=== PATIENT | female | born 1980 | race Caucasian/White ===

== ENCOUNTER → 2018-07-12 15:40 | Outpatient (CLI) | payer OTHER, SELFPAY ==
[2018-07-12 14:31] VITALS: BMI 37.9
[2018-07-18 16:07] LABS: HPV APTIMA, High Risk Negative (Negative)
== END ==
PROVIDERS: Referring Provider Nurse Practitioner Women's Health; Visit Provider Nurse Practitioner Women's Health
DX: Z12.4 Encounter for screening for malignant neoplasm of cervix (principal)
CPT/HCPCS: 87624; 88175; G0145

== ENCOUNTER → 2021-05-12 12:53 | Outpatient (CLI) | payer OTHER, BC, SELFPAY ==
--- NOTE | 2021-05-12 13:00 | BI_ITS ---
MAMMOGRAPHY - BILATERAL SCREENING REASON FOR EXAM: Female, 40 years old. Routine annual screening examination. PERTINENT HISTORY: Non-contributory. TECHNIQUE: Digital bilateral breast syed (3D mammographic acquisition) in the CC and MLO projections. 2-D mediolateral oblique (MLO) and craniocaudad (CC) views of both breasts were obtained. CAD: Full Field Digital Mammography with Computer Added Detection was performed. COMPARISON: None. Baseline examination. FINDINGS: Breast Composition: The breasts are heterogeneously dense, which may obscure small masses. There are no dominant masses or suspicious calcifications. Small benign-appearing bilateral axillary lymph nodes. No other significant abnormalities are identified. BI/SCRN MAMM (CAD)W/SYED BILAT IMPRESSION: Negative screening mammogram. Yearly followup mammogram recommended. (A) ASSESSMENT CATEGORY: BIRADS Category 2: Benign. A letter regarding these results will be sent to the patient by the facility within 30 days. Approximately 10% of breast cancers are not detected by mammography. A normal mammogram should not delay biopsy of a clinically suspicious abnormality. [id number] Electronically Signed: Melvin Guerrero MD at 14:13 EDT , Service support ,
== END ==
PROVIDERS: PCP Family Medicine; Referring Provider Family Medicine; Visit Provider Family Medicine
DX: Z12.31 Encounter for screening mammogram for malignant neoplasm of breast (principal)
CPT/HCPCS: 77063; 77067

== ENCOUNTER → 2023-08-10 | Outpatient (CLI) | payer OTHER, SELFPAY ==
[2023-08-18 16:08] LABS: HPV APTIMA, High Risk Positive (Negative)
== END | disposition home or self-care (01) ==
PROVIDERS: PCP Family Medicine; Visit Provider Nurse Practitioner Women's Health
DX: Z12.4 Encounter for screening for malignant neoplasm of cervix (principal)
CPT/HCPCS: 87624; 88175; G0145

== ENCOUNTER → 2023-08-17 | Outpatient (CLI) | payer OTHER, SELFPAY ==
--- NOTE | 2023-08-17 15:34 | BI_ITS ---
MAMMOGRAPHY - BILATERAL SCREENING 3-D TOMOSYNTHESIS REASON FOR EXAM: Female, 42 years old. Routine annual screening mammogram. PERTINENT HISTORY: No significant family history. TECHNIQUE: 2-D mammograms and 3-D Tomosynthesis of the breast (s) were performed. CAD was performed. COMPARISON: May 12, 2021 FINDINGS: Heterogeneously dense fibroglandular tissue which may obscure small masses. Stable normal lymph nodes and scattered benign calcifications bilaterally. No dominant masses, suspicious microcalcifications, asymmetry, skin thickening or nipple retraction. BI/SCRN MAMM (CAD)W/SYED BILAT IMPRESSION: No mammographic signs of malignancy. Yearly follow-up bilateral screening mammogram recommended. ASSESSMENT CATEGORY: BIRADS Category 2: Benign. A letter regarding these results will be sent to the patient by the facility within 30 days. FOLLOW UP RECOMMENDATION: Yearly follow up mammogram recommended. (A) Approximately 10% of breast cancers are not detected by mammography. A normal mammogram should not delay biopsy of a clinically suspicious abnormality. Electronically Signed: Dmitriy Cabrera MD at 10:42 EST ,
== END | disposition home or self-care (01) ==
LOC: OPBI 15:33
PROVIDERS: PCP Family Medicine; Referring Provider Nurse Practitioner Women's Health; Visit Provider Nurse Practitioner Women's Health
DX: Z12.31 Encounter for screening mammogram for malignant neoplasm of breast (principal)
CPT/HCPCS: 77063; 77067

== ENCOUNTER 2024-03-15 15:20 | Outpatient (RCR) | payer OTHER, SELFPAY | END 2024-03-22 23:59 | LOC: NS 15:20 | PROVIDERS: PCP Family Medicine; Referring Provider Family Medicine; Visit Provider Family Medicine | DX: Z71.3 Dietary counseling and surveillance (principal); E66.9 Obesity, unspecified; Z68.37 Body mass index [BMI] 37.0-37.9, adult | CPT/HCPCS: 97802 ==

== ENCOUNTER 2024-04-11 11:21 | Outpatient (RCR) | payer OTHER, SELFPAY | END 2024-04-22 23:59 | LOC: NS 11:21 | PROVIDERS: PCP Family Medicine; Referring Provider Family Medicine; Visit Provider Family Medicine | DX: Z71.3 Dietary counseling and surveillance (principal); E66.9 Obesity, unspecified; Z68.37 Body mass index [BMI] 37.0-37.9, adult | CPT/HCPCS: 97803 ==

== ENCOUNTER → 2025-01-23 | Outpatient (CLI) | payer OTHER, SELFPAY ==
[2025-01-23 16:08] LABS: Hematocrit 38.3 % (37-47); Mean Corp Hgb Conc 33.9 g/dL (32-36); Mean Corpuscular Hgb 29.3 pg (27.0-32.0); Mean Corpuscular Volume 86.5 fL (81-99); Mean Platelet Vol. 9.3 fl (6.2-12.0); Platelet Count 313 K/mm3 (150-450); RBC Distribution Width CV 13.2 % (11.6-14.6); RBC Distribution Width SD 41.1 fl (35.1-43.9); Red Blood Count 4.43 M/mm3 (4.2-5.4); White Blood Count 8.4 K/mm3 (4.4-11.0)
== END | disposition home or self-care (01) ==
LOC: LAB 15:32
PROVIDERS: PCP Family Medicine; Referring Provider Family Medicine; Visit Provider Family Medicine
DX: Z00.00 Encounter for general adult medical examination without abnormal findings (principal); I47.10 Supraventricular tachycardia, unspecified; R53.83 Other fatigue
CPT/HCPCS: 36415; 84443; 85027

== ENCOUNTER → 2025-03-28 | Outpatient (CLI) | payer OTHER, SELFPAY ==
--- OUTSIDE RECORDS SUMMARY | 2025-03-28 08:56 | XMS RPT_ITS | CCD ---
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 Fidelina Arshad Primary Care Provider [phone] Dr. Fidelina Arshad Referring Provider [phone] Charu AUCTIONEER TOBACCO, ELIZABETH Medina Attending Provider [phone] Dr. Fidelina Arshad MD Primary Care Provider Dr. Fidelina Arshad MD Attending Provider Dr. Fidelina Arshad MD Referring Provider Dr. Cody Dutton MD Attending Provider Fidelina Arshad Primary Care Unavailable Fidelina Arshad Referring Unavailable Fidelina Arshad Attending Unavailable Easton Donovan Attending Unavailable Fidelina Arshad Primary Care Unavailable Jeancarlos, Fidelina Primary Care Unavailable Cody Dutton Referring Unavailable Cody Dutton Attending Unavailable Fidelina Arshad Primary Care Unavailable Cody Dutton Referring Unavailable Cody Dutton Attending Unavailable Fidelina Arshad Attending Unavailable Fidelina Arshad Primary Care Unavailable Fidelina Arshad Referring Unavailable Fidelina Arshad Attending Unavailable Tobi Arshadnah Primary Care Unavailable Tobi Arshadnah Referring Unavailable Jeancarlos, Fidelina Primary Care Unavailable Fidelina Arshad Referring Unavailable Cody Dutton Attending Unavailable Medications Current Medications Medication Drug Class(es) Dates Sig (Normalized) Sig (Original) 24 hr amphetamine aspartate 7.5 mg / amphetamine sulfate 7.5 mg / dextroamphetamine saccharate 7.5 mg / dextroamphetamine sulfate 7.5 mg extended release oral capsule (1 source) Central Nervous System Stimulant Start: 03-13-2025 Dextroamphetamine-A mphetamine 30 mg capsule,extended release 24hr Active 1 NMA PO daily 0 March 13, 2025 12:00am Dextroamphetamine-Amph etamine 10 mg capsule,extended release 24hr (1 source) Start: 03-13-2025 Dextroamphetamine-A mphetamine 10 mg capsule,extended release 24hr Active 1 NMA PO EVERY MORNING 0 March 13, 2025 12:00am levonorgestrel 0.094668 mg/hr intrauterine system (4 sources) Progestin, Progestin-contain ing Intrauterine Device Start: 09-21-2018 Levonorgestrel (Liletta) 19.5 mcg/24 hour (4 years) intrauterine device Active 1 NMA INTRA-UTER ONCE September 21, 2018 1:00am Start: 09-21-2018 Levonorgestrel (Liletta) 19.5 mcg/24 hour (4 years) intrauterine device Active 1 INSERT INTRA-UTER ONCE September 21, 2018 12:00am Problems Problem Classification Problem Date Documented Date Episodic/Chronic Attention-deficit, conduct, and disruptive behavior disorders (1 source) Adult attention deficit hyperactivity disorder ; Translations: [Attention-deficit hyperactivity disorder, other type] 03-06-2025 Chronic Cancer of cervix (3 sources) Atypical squamous cells of undetermined significance on cervical Papanicolaou smear; Translations: [Atypical squamous cells of undetermined significance on cytologic smear of cervix (ASC-US)] 08-20-2023 Episodic Cardiac dysrhythmias (2 sources) Palpitations; Translations: [Palpitations] Onset: 03-13-2025 Episodic Other diseases of bladder and urethra (4 sources) Bladder irritability; Translations: [Other specified disorders of bladder] 08-10-2023 Chronic Other diseases of bladder and urethra (2 sources) Other specified disorders of bladder; Translations: [Other specified disorders of bladder] 08-10-2023 Chronic Other lower respiratory disease (2 sources) Other forms of dyspnea; Translations: [Other forms of dyspnea] Onset: 03-13-2025 Episodic Other nutritional; endocrine; and metabolic disorders (2 sources) Obesity, unspecified; Translations: [Obesity, unspecified] Onset: 04-28-2024 Chronic Spondylosis; intervertebral disc disorders; other back problems (1 source) Backache; Translations: [Dorsalgia, unspecified] 03-06-2025 Episodic Unclassified (1 source) Supraventricular tachycardia, unspecified; Translations: [Supraventricular tachycardia, unspecified] Onset: 03-13-2025 Results Test Name Value Interpretation Reference Range Facility Cardiology Visit Reporton Cardiology Visit Report [facility] [address] [place] [address] OFFICE VISIT Date of Service: 03/13/25 MR#: [id number] Acct: [id number] Name: DEYA GARCIA Rep #: [id number] : 1980 Provider: Dr. Cody ferguson MD Age/Sex: 44/F Location: [facility] Status: Signed HPI HPI History of Present Illness Details: Patient is a pleasant 44-year-old white female comes in today for new patient visit. The patient works at [employer] and has somewhat of a stressful job. She reports that she has episodes where she gets dyspnea on exertion out of proportion of others of the same age and physical abilities around her. She is also noticed that her heart rate is tachycardic can be up in the 130s when she does sit in a ballgame. The patient does notice that this has happened with the heart rate more prominently since she started Adderall about a year ago. Before that time she was hiking in [place] and did not notice these significant dyspnea on exertion or the tachycardia. Now she gets short of breath quickly and more quickly than her who smokes significantly. The patient quit smoking 8 years ago she had about an [id number] smoking history. The patient denies any syncope or near syncope. She did play sports in high school and during game times was able to keep up with everyone but during practice when with running drill she lag behind due to breathing issues. And this preceded any smoking exposure. The patient does not have a family history of early coronary disease she has not been diagnosed with hypertension although her blood pressure in office today was 132/93 but she admits to being anxious. Her heart rates 101. She does have a history of minimal elevation of her LDL cholesterol she is not diabetic and she quit smoking 8 years ago. ECG done in office today shows normal sinus rhythm at 92 bpm and is within normal limits. The patient is never had a stress test and does not have an echocardiogram. She has been treated for this ADHD adult residual type with Adderall for the last year. 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 Required: No Accompanied by: Self Is patient in pain?: No Allergies No Known Allergies Allergy (Verified 03/13/25 14:18) Medications ???Medication ???Instructions ???Recorded ???Confirmed ???Type levonorgestrel 20.4 mcg/24 hr (up 1 insert intrauterine ONCE 03/13/25 History to 8 yrs) 52 mg intrauterine device (Liletta) dextroamphetamine-am phetamine ER 1 cap PO QAM 03/13/25 03/13/25 His tory 10 mg 24hr capsule,extend release dextroamphetamine-am phetamine ER 1 cap PO QDAY 03/13/25 03/13/25 Hi story 30 mg 24hr capsule,extend release Have you fallen in the past year?: No PFSH Medical History Back pain ADHD, adult residual type Surgical History History of dilatation and curettage History of cholecystectomy Family History Father Hypertension Diverticulitis Hyperlipidemia Sister Diabetes Grandfather Diabetes Social History current occupational status: employed 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 Smoking Status: Former smoker alcohol intake: current alcohol intake frequency: holidays/special occasions only substance use type: does not use caffeine: Yes seatbelt use: always do you feel safe at home: Yes 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 SKY Const Const: Negative for fatigue or weakness ENT ENT: Negative for dizziness or balance problems Cardio Chest Pain: No Palpitations: Yes (caused by vigorous activity) Edema: Bilateral (intermittently) Muscle aches with walking: None Resp Respiratory: Positive for SOB with activity (with vigorous activity); Negative for SOB at rest or SOB orthopnea SOB lying down GI GI: Positive for heartburn; Negative nausea or vomiting Musc Musc: Negative for muscle weakness or balance problems Neuro Neuro: Negative for dizziness, lightheadedness, near syncope, syncope or weakness Endo Endo: Negative for fatigue Cardiology Exam Const Appearance: cooperative, healthy appearing, comfortable, no acute distress and well developed Head Head: normal to inspection Eyes General: appearance normal, both eyes and all related struct (more content not included)... Normal [facility] CBC-Complete Blood Cnt No Di ffon 01-23-2025 Erythrocyte distribution width (RBC) [Ratio] 13.2 % Normal 11.6-14.6 [facility] Comment on above: Performed By: #### L [id number], L100.0500 #### [facility] [address] [place], [address] Hematocrit (Bld) [Volume fraction] 38.3 % Normal 37-47 [facility] Comment on above: Performed By: #### L [id number], L100.0500 #### [facility] [address] [place], [address] Hemoglobin (Bld) [Mass/Vol] 13.0 g/dL Normal 12.0-15.0 [facility] Comment on above: Performed By: #### L [id number], L100.0500 #### [facility] [address] [place], [address] MCH (RBC) [Entitic mass] 29.3 pg Normal 27.0-32.0 [facility] Comment on above: Performed By: #### L [id number], L100.0500 #### [facility] [address] [place], [address] MCHC (RBC) [Mass/Vol] 33.9 g/dL Normal 32-36 [facility] Comment on above: Performed By: #### L [id number], L100.0500 #### [facility] [address] [place], [address] MCV (RBC) [Entitic vol] 86.5 fL Normal 81-99 [facility] Comment on above: Performed By: #### L [id number], L100.0500 #### [facility] [address] [place], [address] Platelet mean volume (Bld) [Entitic vol] 9.3 fL Normal 6.2-12.0 [facility] Comment on above: Performed By: #### L [id number], L100.0500 #### [facility] [address] [place], [address] Platelets (Bld) [#/Vol] 313 10*3/uL Normal 150-450 [facility] Comment on above: Performed By: #### L [id number], L100.0500 #### [facility] [address] [place], [address] RBC (Bld) [#/Vol] 4.43 10*6/uL Normal 4.2-5.4 [facility] Comment on above: Performed By: #### L [id number], L100.0500 #### [facility] [address] [place], [address] RDW SD 41.1 fl Normal 35.1-43.9 [facility] Comment on above: Performed By: #### L [id number], L100.0500 #### [facility] [address] [place], [address] WBC (Bld) [#/Vol] 8.4 10*3/uL Normal 4.4-11.0 [facility] Comment on above: Performed By: #### L [id number], L100.0500 #### [facility] [address] [place], [address] Erythrocyte distribution wid th ratioOrdered By: Fidelina Arshad on 01-23-2025 Erythrocyte distribution width (RBC) [Ratio] 13.2 % 11.6-14.6 [facility] Erythrocyte distribution wid th standard deviationOrdered By: Fidelina Arshad on 01-23-2025 Erythrocyte distribution width (RBC) [Ratio] 41.1 fl 35.1-43.9 [facility] Hematocrit Auto (Bld) [Volum e fraction]Ordered By: Fidelina Arshad on 01-23-2025 Hematocrit (Bld) [Volume fraction] 38.3 % 37-47 [facility] Hemoglobin measurementOrdere d By: Fidelina Arshad on 01-23-2025 Hemoglobin (Bld) [Mass/Vol] 13.0 g/dL 12.0-15.0 [facility] MCV (mean corpuscular volume ) determinationOrdered By: Fidelina Arshad on 01-23-2025 MCV (RBC) [Entitic vol] 86.5 fL 81-99 [facility] Mean corpuscular hemoglobin (MCH) determinationOrdered By: Fidelina Arshad on 01-23-2025 MCH (RBC) [Entitic mass] 29.3 pg 27.0-32.0 [facility] Mean corpuscular hemoglobin concentration (MCHC) determinationOrdered By: Fidelina Arshad on 01-23-2025 MCHC (RBC) [Mass/Vol] 33.9 g/dL 32-36 [facility] Mean platelet volume determi nationOrdered By: Fidelina Arshad on 01-23-2025 Platelet mean volume (Bld) [Entitic vol] 9.3 fL 6.2-12.0 [facility] Platelet countOrdered By: Jaime Arshad on 01-23-2025 Platelets (Bld) [#/Vol] 313 10*3/uL 150-450 [facility] RBC Auto (Bld) [#/Vol]Ordere d By: Fidelina Arshad on 01-23-2025 RBC (Bld) [#/Vol] 4.43 10*6/uL 4.2-5.4 [facility] TSH DL <= 0.005 mIU/L QnOrde red By: Fidelina Arshad on 01-23-2025 TSH Qn 2.430 uIU/mL 0.300-4.200 [facility] Thyroid Stim Hormone (TSH)on 01-23-2025 TSH 2.430 uIU/mL Normal 0.300-4.200 [facility] Comment on above: Performed By: #### L [id number], L100.0500 #### [facility] [address] [place], [address] White blood cell (WBC) count Ordered By: Fidelina Arshad on 01-23-2025 WBC (Bld) [#/Vol] 8.4 10*3/uL 4.4-11.0 [facility] Cervical or vagninal specime n microscopic examination by cytology stain (reported asOrdered By: Carol Box on 08-10-2023 Cytology report Cyto stain Doc (Cvx/Vag) Comment . [facility] Comment on above: The Pap smear is a s creening test designed to aid in thedetection of premalignant and malignant conditions of theuterine cervix. It is not a diagnostic procedure andshould not be used as the sole means of detecting cervicalcancer. Both false-positive and false-negative reports dooccur. Detection in cervical specim en of any of human papilloma virus (HPV) 16, 18, 31, 33,Ordered By: Carol Box on 08-10-2023 HPV 16+18+31+33+35+39+45+51+ 52+56+58+59+66+68 DNA Probe+sig amp Ql (Cvx) Positive Negative [facility] Comment on above: This nucleic acid am plification test detects fourteen high-risk HPV types (16,18,31,33,35,39,45,51,52,56,58,59,66,68)without differentiation. Laboratory - CytologyOrdered By: Carol Box on 08-10-2023 Residential Framing Carpenter Cyto stain Nom (Cvx/Vag) [ID] Comment . [facility] Comment on above: Marvin Corral totechnologist Pathologist Cyto stain Nom (Cvx/Vag) [ID] Comment . [facility] Comment on above: Leonor Arteaga MD, Pa thologist Recommended follow-up Cyto stain Nom (Cvx/Vag) Comment . [facility] Comment on above: Suggest follow up as clinically appropriate. Laboratory - Miscellaneous t estsOrdered By: Carol Box on 08-10-2023 Service comment (Unsp spec) [Interp] Comment . [facility] Comment on above: This liquid based Th inPrep(R) pap test was screened withthe use of an image guided system. Service comment (Unsp spec) [Interp] . . [facility] Liquid-based cerv Pap + CT/G C by JOANA w reflex to high-risk HPV for ASCUSOrdered By: Carol Box on 08-10-2023 Cytology report Cyto stain.thin prep Doc (Cvx/Vag) Comment . [facility] Comment on above: Criteria not met, HP V Genotype not performed.Performed at: [facility] - [facility] [id number] Director: Oneida Elise MD, Phone: [phone] at: =G - [facility] [address] [id number] Director: Oneida Elise MD, Phone: [phone] No Panel InformationOrdered By: Carol Box on 08-10-2023 Pap Smear QC Review Comment . [facility] Comment on above: Marvin Moran totechnologist (ASCP) Pathology report final diagnosis Narrative Comment . [facility] Comment on above: EPITHELIAL CELL ABNO RMALITY.ATYPICAL SQUAMOUS CELLS OF UNDETERMINED SIGNIFICANCE (ASC-US). R87.610 Vital Signs Date Time Vital Sign Value Performing Clinician Faci lity 03-13-2025 14:18-0400 Body height 175.[address] Fidelina Arshad MD Work Phone: [facility] 03-13-2025 14:18-0400 Body mass index (BMI) [Ratio] 36.9 kg/m2 Dr. Fidelina Arshad MD Work Phone: [facility] 03-13-2025 14:18-040 Body weight 113.[address] Fidelina Arshad MD Work Phone: [facility] 03-13-2025 14:18-0400 Diastolic blood pressure 93 mm[Hg] Dr. Fidelina Arshad MD Work Phone: [facility] 03-13-2025 14:18-0400 Heart rate 101 /min Dr. Fidelina Arshad MD Work Phone: [facility] 03-13-2025 14:18-0400 Respiratory rate 18 /min Dr. Fidelina Arshad MD Work Phone: [facility] 03-13-2025 14:18-0400 SaO2% (BldA) [Mass fraction] 96 % Dr. Fidelina Arshad MD Work Phone: [facility] 03-13-2025 14:18-0400 Systolic blood pressure 132 mm[Hg] Dr. Fidelina Arshad MD Work Phone: [facility] 08-10-2023 15:47-0500 Body height 175.[address] Fidelina Arshad Work Phone: [facility] 08-10-2023 15:47-0500 Body mass index (BMI) [Ratio] 35.7 kg/m2 Dr. Fidelina Arshad Work Phone: [facility] 08-10-2023 15:47-0500 Body weight 109.[address] Fidelina Arshad Work Phone: [facility] 08-10-2023 15:47-0500 Diastolic blood pressure 82 mm[Hg] Dr. Fidelina Arshad Work Phone: [facility] 08-10-2023 15:47-0500 Systolic blood pressure 124 mm[Hg] Dr. Fidelina Arshad Work Phone: [facility] Encounters Encounter Date Encounter Type Care Provider Facility Start: 04-06-2025 ambulatory Easton Friend Facility :[facility] Start: 03-29-2025 ambulatory [facility] Facility: [facility] Start: 03-28-2025 ambulatory [facility] Facility: [facility] Start: 03-13-2025 End: 03-13-[address] Cody Dutton MD -[facility] Work Phone: Start: 03-13-2025 End: 03-13-[address] Fidelina Arshad MD Work Phone: -[facility] Start: 01-28-2025 Encounter for genera l adult medical examination without abnormal findings [facility] Start: 01-23-2025 End: 01-23-[address] Fidelina Arshad MD Work Phone: [facility] Work Phone: Start: 01-23-2025 End: 01-23-[address] Fidelina Arshad MD -Laboratory Work Phone: Start: 01-23-2025 End: 01-23-2025 ambulatory Fidelina Mihayes Facility:[facility] Start: 06-06-2024 ambulatory [facility] Facility: [facility] Start: 04-11-2024 End: 04-22-2024 ambulatory [facility] Facility:[facility] Start: 08-17-2023 End: 08-17-[address] Fidelina Arshad Work Phone: [facility] Work Phone: Start: 08-17-2023 End: 08-17-[address] Fidelina Arshad Work Phone: [facility]-Outpatient Breast Imaging Work Phone: Start: 08-10-2023 End: 08-10-[address] Fidelina Arshad Work Phone: [facility] Work Phone: Start: 08-10-2023 End: 08-10-[address] Fidelina Arshad Work Phone: [facility]-Laboratory, Specimen Work Phone: Start: 08-10-2023 End: 08-10-[address] Fidelina Arshad Work Phone: [facility] Work Phone: Procedures Date Procedure Procedure Detail Performing Clinician Start: 08-17-2023 Screening mammography José Arshad Work Phone: Plan of Treatment Date Care Activity Detail Author Start: 03-13-2025 Evaluation of diagno stic study results [facility] Start: 08-17-2023 MG Breast - bilatera l Screening [facility] Start: 08-17-2023 Screening mammography SCRN CORINNE M (CAD)W/SYED BILAT [facility] Start: 08-10-2023 Liquid based cervica l cytology screening [facility] 24 Hour ECG [facility] Cardiovascular stres s testing [facility] Path report.final Dx Spec [facility] acute hospital Payers Date Payer Category Payer Self-pay [id number] 2024 Unknown [id number] Unknown [id number] Unknown SELF INSURED [facility] OTHER [id number] Unknown [id number] Unknown [id number] Unknown [id number] Unknown [id number] Unknown [id number] Unknown [id number] Unknown [id number] Social History Date Type Detail Facility Start: 08-10-2023 Tobacco smoking stat [facility] Unknown if ever smoked [facility] Start: 1980 Sex Assigned At Female [facility] Start: 08-10-2023 Tobacco smoking stat [facility] Never smoked tobacco (finding) [facility] Start: 03-13-2025 Tobacco smoking stat [facility] Ex-smoker (finding) [facility] Clinical Note 08-10-2023 Note Date & Type Note Facility 08-10-[address] [facility] Pap Smear Specimen Adequacy August 10, 2023 5:11pm Comment . Satisfactory for evaluation. Endocervical and/or squamous metaplasticcells (endocervical component) are present. Comment on above: Satisfactory for gracia luation. Endocervical and/or squamous metaplasticcells (endocervical component) are present. Clinical Note 03-14-2021 Note Date & Type Note Facility 03-14-2021 Note Patient Outreach (IN [facility]) DEYA BIRCH ([id number]) 1980 F Date Time Provider Department 03/14/21 PATRICIA PARR During your visit today, we recorded the following information about you: Allergies As of Date: 03/14/2021 (No Known Allergies) Date Reviewed: 07/06/2019 Reviewed by: Joseph Cho - Fully Assessed Visit Diagnosis:Encounter for screening mammogram for breast cancer [Z12.31] Order(s):[facility] SCREENING [[id number]] Order #: [id number] FUTURE Prescriptions as of 03/17/2021 - predniSONE (DELTASONE) 10 mg tablet 4 tabs po Q am x 3 days; 3 tabs po Q am x 3 days; 2 tab po Q am x 3 days; 1 tab po Q am x 3 days - benzonatate (TESSALON PERLE) 100 mg capsule Take 2 capsules by mouth three times daily as needed. - albuterol HFA (PROAIR HFA) 90 mcg/actuation inhaler Inhale 2 Puffs as instructed every 4 hours as needed. - Varenicline (CHANTIX) 0.5 mg (11)- 1 mg (42) tablet Take 0.5 mg daily x3days, then twice daily for 4 days, then 1mg twice daily for duration. - varenicline (CHANTIX CONTINUING MONTH ) 1 mg tablet Take 1 tablet by mouth twice daily. Meds Comments as of 05/06/2010: Problem List As Of Date 03/14/2021 Noted Resolved SUPERVIS OTHER NORMAL PREG [Z34.80] 11/03/2007 06/06/2008 Tobacco abuse [Z72.0] 10/21/2010 Chronic cholecystitis with calculus [K80.10] 08/03/2016 Tobacco use [Z72.0] Encounter Status:Closed by MYNOR HUMMEL on 03/17/21 [facility] Evaluation note Note Date & Type Note Facility Evaluation note Diagnosis Onset Date Bladder irritation acute Encounter for routine gyneco logical examination noneactive [facility] Work Phone: Evaluation note Note Date & Type Note Facility Evaluation note No assessment information availa ble [facility] Work Phone: Reason for referral (narrative) Note Date & Type Note Facility Reason for referral (narrative) No reason for referral information available 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 Fidelina Arshad MD Primary Care Provider Active Team Status: Inactive Member Role Status Dates Dr. Fidelina Arshad MD Primary Care Provider, Referrin g Provider Active Carol Box AUCTIONEER TOBACCO, AUCTIONEER TOBACCO-C Attending Provider Active Team Status: Inactive Member Role Status Dates Dr. Fidelina Arshad MD Primary Care Provider Active Carol Box AUCTIONEER TOBACCO, AUCTIONEER TOBACCO-C Attending Provider Active Team Status: Active Member Role Status Dates Dr. Fidelina Arshad MD Primary Care Provider Active Carol Box AUCTIONEER TOBACCO, AUCTIONEER TOBACCO-C Attending Provider, Referring Provider Active Team Status: Inactive Member Role Status Dates Dr. Fidelina Arshad MD Primary Care Provider Active Carol Box AUCTIONEER TOBACCO, AUCTIONEER TOBACCO-C Attending Provider, Referring Provider Active Team Status: Inactive Member Role Status Dates Dr. Fidelina Arshad MD Primary Care Provider Active Start: January 23, 2025 End: January 23, 2025 Dr. Fidelina Arshad MD Attending Provider Active Start: January 23, 2025 End: January 23, 2025 Dr. Fidelina Arshad MD Referring Provider Active Start: January 23, 2025 End: January 23, 2025 Team Status: Active Member Role/Relationship Status Dates Dr. Fidelina Arshad MD Primary Care Provider Active Team Status: Inactive Member Role/Relationship Status Dates Dr. Fidelina Arshad MD Primary Care Provider Active Start: January 23, 2025 End: January 23, 2025 Dr. Fidelina Arshad MD Attending Provider Active Start: January 23, 2025 End: January 23, 2025 Dr. Fidelina Arshad MD Referring Provider Active Start: January 23, 2025 End: January 23, 2025 Team Status: Inactive Member Role/Relationship Status Dates Dr. Fidelina Arshad MD Primary Care Provider Active Start: March 13, 2025 End: March 13, 2025 Dr. Fidelina Arshad MD Referring Provider Active Start: March 13, 2025 End: March 13, 2025 Dr. Cody Dutton MD Attending Provider Active Start: March 13, 2025 End: March 13, 2025 Goals (unrecognized section and content) Goals may be documented in a n alternate sectionGoals may be documented in an alternate sectionGoals may be documented in an alternate sectionGoals may be documented in an alternate section FOR RECORDS PERTAINING TO PATIENTS WHO ARE OR HAVE BEEN ENROLLED IN A CHEMICAL DEPENDENCY/SUBSTANCEABUSE PROGRAM, SOME INFORMATION MAY BE OMITTED. This clinical summary was aggregated from multiple sources. Caution should be exercised in using it in the provision of clinical care. This summary normalizes information from multiple sources, and as a consequence, information in this document may materially change the coding, format and clinical context of patient data. In addition, data may be omitted in some cases. CLINICAL DECISIONS SHOULD BE BASED ON THE PRIMARY CLINICAL RECORDS. [facility] [employer] [facility]. provides no warranty or guarantee of the accuracy or completeness of information in this document.
== END | disposition home or self-care (01) ==
PROVIDERS: PCP Family Medicine; Referring Provider Internal Medicine Cardiovascular Disease; Visit Provider Internal Medicine Cardiovascular Disease
DX: R00.2 Palpitations (principal)
CPT/HCPCS: 93225; 93226

== ENCOUNTER → 2025-03-29 | Outpatient (CLI) | payer OTHER, SELFPAY ==
--- NOTE | 2025-03-30 07:11 | STRESSREP ---
Stress Test Report Exercise stress test. 44-year-old lady with a history of dyspnea Stress protocol: Resting EKG demonstrates normal sinus rhythm with a rate of 68 bpm resting blood pressure is 122/92 mmHg. The patient exercised according to the regular [facility] protocol for a total duration of 8 minutes attaining a maximum heart rate of 176 bpm which was 100% of maximum predicted heart rate; the maximum workload was 10.1 metabolic equivalents. At rest there were no ST or T wave changes noted to suggest ischemia and at peak exercise upsloping ST changes only were noted which did not meet the criteria for ischemia. No clinical angina was noted the test was terminated due to the target heart rate being achieved/fatigue. The peak blood pressure was 148/78 mmHg. Rate-pressure product was 24,600. Conclusion: Exercise stress test with no EKG criteria for ischemia at a high workload.
== END | disposition home or self-care (01) ==
LOC: CVS 12:38
PROVIDERS: PCP Family Medicine; Referring Provider Internal Medicine Cardiovascular Disease; Visit Provider Internal Medicine Cardiovascular Disease
DX: R06.09 Other forms of dyspnea (principal)
CPT/HCPCS: 93017

== ENCOUNTER → 2025-07-12 | Outpatient (CLI) | payer OTHER, SELFPAY ==
[2025-07-19 03:07] LABS: HPV APTIMA, High Risk Negative (Negative)
== END | disposition home or self-care (01) ==
LOC: LABSPEC 16:19
PROVIDERS: PCP Family Medicine; Visit Provider Nurse Practitioner Family
DX: Z12.4 Encounter for screening for malignant neoplasm of cervix (principal)
CPT/HCPCS: 87624; 88175; G0145

== ENCOUNTER → 2025-08-13 | Outpatient (CLI) | payer OTHER, SELFPAY ==
--- NOTE | 2025-08-13 12:45 | BI_ITS ---
EXAM: SCRN MAMM (CAD)W/SYED BILAT DATE: 08/13/2025 CLINICAL HISTORY: F, Age 44 y/o , SCREEN FOR BREAST CANCER TECHNIQUE: Procedure Code: [id number] Modality: MG Procedure: SCRN MAMM (CAD)W/SYED BILAT COMPARISON: Prior exam(s) dated 08/17/2023. FINDINGS: TISSUE DENSITY: The breasts are heterogeneously dense, which may obscure small masses. Bilateral Breast Mammographic Findings: No significant masses, calcifications or other abnormalities are identified. Benign round microcalcifications are seen in both breasts. Benign macrocalcifications are seen in the right breast. BI/SCRN MAMM (CAD)W/SYED BILAT IMPRESSION: Benign screening mammogram OVERALL FINAL ASSESSMENT BI-RADS 2: BENIGN RECOMMENDATION: Routine annual follow-up in 1 Year Additional Recommendation none A letter with findings and recommendations will be mailed to the patient. Reading Location: [id number]
== END | disposition home or self-care (01) ==
LOC: OPBI 12:38
PROVIDERS: PCP Family Medicine; Referring Provider Nurse Practitioner Family; Visit Provider Nurse Practitioner Family
DX: Z12.31 Encounter for screening mammogram for malignant neoplasm of breast (principal)
CPT/HCPCS: 77063; 77067